=== PATIENT | female | born 1990 | race Caucasian/White ===

== ENCOUNTER 2020-12-24 16:26 | Emergency (ER) | payer OTHER, SELFPAY ==
[2020-12-24 16:43] VITALS: BP 115/73; PULSE 108; RESP 20; TEMP 38.3; O2SAT 100
[2020-12-24] MEDS: KETOROLAC (*BKC) 60 MG/2 ML VIAL IM (17:07)
[2020-12-24] MEDS: LIDOCAINE, EPINEPHRINE, TETRACAINE VISCOUS SOLN 3 ML TOPICAL (17:10)
--- NOTE | 2020-12-24 17:59 | ED.SKABFB ---
HPI - Skin/Abscess/Foreign Bdy General Chief complaint: Skin/Abscess/Foreign Body Stated complaint: boil on butt Time Seen by Provider: 12/24/20 16:50 Source: patient and RN notes reviewed Mode of arrival: ambulatory Limitations: no limitations History of Present Illness HPI narrative: 30-year-old female presents with concern for a boil to her buttock. Reports she noticed the area yesterday and it quickly became painful, large, red. She denies any drainage. She denies any known bite, trauma. Denies history of similar instances in the past. She denies intervention. complaint: abscess/boil Related Data Home Medications Medication Instructions Recorded Confirmed alprazolam 1 mg PO DAILY 12/24/20 12/24/20 lidocaine HCl 2 ea TOPICAL DIRECTED 12/24/20 12/24/20 venlafaxine 150 mg PO DAILY 12/24/20 12/24/20 Allergies Allergy/AdvReac Type Severity Reaction Status Date / Time No Known Allergies Allergy Verified 12/24/20 16:52 Review of Systems Review of Systems: Narrative: CONSTITUTIONAL: Denies malaise, chills, sweats, or fever. CARDIOVASCULAR: Denies chest pain, palpitations, or edema. RESPIRATORY: Denies cough or dyspnea. GASTROINTESTINAL: Denies abdominal pain, nausea, vomiting, diarrhea, constipation or bowel changes SKIN: Reports large painful boil to the right buttock MUSCULOSKELETAL: Denies myalgia. All systems reviewed & are unremarkable except as noted in HPI and below PMFSH Social History Social History Gender identity (if verbalized by the patient): Female Comments At time of signature, agree with nursing past medical, surgical, social and family history. There is no relevant family history pertinent to the presenting complaint Exam Narrative: Exam Narrative: GENERAL: Well-appearing, well-nourished, and in no acute distress. HEAD: Normocephalic, atraumatic. EYES: PERRLA, conjunctivae clear, and EOMI. ENT: Mucous membranes moist. Oropharynx without edema, erythema or lesions. NECK: Supple. No lymphadenopathy CHEST: Clear to auscultation. No respiratory distress. HEART: Regular rate and rhythm. SKIN: Warm, dry. 9 cm right 7 cm of erythema, edema, induration, tenderness with central dark area, small amount of bloody drainage coming from the central dark area noted to the right lower buttock, not apparently involving the anus. NEURO: Alert and oriented x3. PSYCH: Normal mood and affect Course Course Emergency Course: Discussed with patient the need for follow-up with wound care or primary care, discussed reasons to go the emergency room. Patient is aware of diagnosis, understands and agrees to treatment plan. Anticipatory guidance given. Patient agrees to follow-up as directed and is aware of reasons to seek care at the emergency department. Portions of this record may have been created with voice recognition software Vital Signs Vital signs: Vital Signs Temperature 100.9 F H 12/24/20 16:43 Pulse Rate 108 H 12/24/20 16:43 Respiratory Rate 20 12/24/20 16:43 Blood Pressure 115/73 12/24/20 16:43 Pulse Oximetry 100 12/24/20 16:43 Temperature 100.9 F H 12/24/20 16:43 Pulse Rate 108 H 12/24/20 16:43 Respiratory Rate 20 12/24/20 16:43 Blood Pressure 115/73 12/24/20 16:43 Pulse Oximetry 100 12/24/20 16:43 Reviewed. Procedures Abscess I/D other: Date of Incision: 12/24/20 Time of Incision: 17:40 Side (if applicable): right Local Anesthetic: lidocaine 1% Amount of anesthesia used (mL): 7 Technique: incised with #11 blade Amount of fluid expressed (mL): 5 Irrigation: Yes Packing used?: none I&D Results: Pus Abcess I&D Additional Comments: Although erythematous indurated area is 9 cm abscess area appears to only be approximately 2-1/2 to 3 cm, unable to tell if there is any tunneling. Area flushed MDM - Skin/Abscess/Foreign Bdy MDM Narrative Medical decision making narrative: Verbal consent
== END 2020-12-24 18:08 | disposition home or self-care (01) ==
PROVIDERS: Emergency Provider Nurse Practitioner
DX: L02.31 Cutaneous abscess of buttock (principal)
CPT/HCPCS: 10060; 87070; 87075; 87147; 87186; 87205; 96372; 99213; G0463; J1885